=== PATIENT | female | born 1995 | race Caucasian/White ===

== ENCOUNTER 2018-05-05 11:45 | Outpatient (REF) | payer OTHER, SELFPAY | END 2018-05-05 12:05 | LOC: NCHCN 11:45 | PROVIDERS: PCP Specialist/Technologist Athletic Trainer; Visit Provider Specialist/Technologist Athletic Trainer | DX: J02.9 Acute pharyngitis, unspecified (principal) | CPT/HCPCS: 87070 ==

== ENCOUNTER 2020-04-30 15:57 | Outpatient (REF) | payer OTHER, SELFPAY ==
--- NOTE | 2020-04-30 14:45 | PAPFT_PTH ---
PATIENT: Juanita Ch LOC: [facility] U#:[id number] AGE/SX: 24/F ROOM: RE04/30/[address]: Nalini Morrison NP : 1995 BED: DIS: 04/30/2020 SPEC #: [id number] RECD: 04/30/20 18:00 STATUS: ILDA BATES #: [id number] ALBERTO: 04/30/20 14:[address]: Nalini Morrison NP DEPT: [facility] Cytology RECD BY: Keke Larios ENTERED: 04/30/20 18:01 SP TYPE: PAPFT OTHR DR: Levi Chan Tissues: 1 - CX/ENDOCX FOR PAP SMEARS Procedures: PAP THIN PREP/[facility]VM Screening Comments: [id number]
== END 2020-04-30 16:17 ==
LOC: LBN 15:57
PROVIDERS: PCP Specialist/Technologist Athletic Trainer; Visit Provider Nurse Practitioner Women's Health
DX: Z12.4 Encounter for screening for malignant neoplasm of cervix (principal); R87.611 Atypical squamous cells cannot exclude high grade squamous intraepithelial lesion on cytologic smear of cervix (ASC-H)
CPT/HCPCS: 88142

== ENCOUNTER 2020-05-28 16:40 | Outpatient (REF) | payer OTHER, SELFPAY ==
--- NOTE | 2020-05-28 14:15 | CER_PTH ---
PATIENT: Juanita Ch LOC: [facility] U#:[id number] AGE/SX: 24/F ROOM: RE05/28/[address]: Della Romero DO : 1995 BED: DIS: 05/28/2020 SPEC #: [id number] RECD: 05/28/20 16:53 STATUS: ILDA REQ #: [id number] ALBERTO: 05/28/20 14:[address]: Della Romero DEPT: Surgical Specimen RECD BY: Keke Larios ENTERED: 05/28/20 16:59 SP TYPE: CER DONTA DR: Renee Navas Tissues: 1 - CERVICAL BIOPSY 2 - ENDOCERVICAL BX/CURRETTE Procedures: GROSS AND MICRO LEVEL 4 Comments: [id number]
== END 2020-05-28 17:00 ==
LOC: LBN 16:40
PROVIDERS: PCP Specialist/Technologist Athletic Trainer; Visit Provider Obstetrics & Gynecology
DX: R87.610 Atypical squamous cells of undetermined significance on cytologic smear of cervix (ASC-US) (principal); N72 Inflammatory disease of cervix uteri
CPT/HCPCS: 88305

== ENCOUNTER 2021-09-09 12:09 | Outpatient (REF) | payer OTHER, SELFPAY ==
--- NOTE | 2021-09-09 11:30 | PAPFT_PTH ---
PATIENT: Juanita Ch LOC: [facility] U#:[id number] AGE/SX: 25/F ROOM: RE09/09/[address]: Della Romero DO : 1995 BED: DIS: 09/09/2021 SPEC #: [id number] RECD: 09/09/21 13:02 STATUS: ILDA RE #: [id number] ALBERTO: 09/09/21 11:[address]: Della Romero DEPT: [facility] Cytology RECD BY: Keke Larios ENTERED: 09/09/21 13:02 SP TYPE: PAPFT OTHR DR: Levi Chan Tissues: 1 - CX/ENDOCX FOR PAP SMEARS Procedures: PAP THIN PREP/UVM Screening Comments: [id number] (CHLAMYDIA/GC)
[2021-09-10 14:16] LABS: Chlamydia Result Negative (Negative); GC Result Negative (Negative)
== END 2021-09-09 12:10 | disposition home or self-care (01) ==
LOC: LBN 12:09
PROVIDERS: PCP Specialist/Technologist Athletic Trainer; Visit Provider Obstetrics & Gynecology
DX: Z11.3 Encounter for screening for infections with a predominantly sexual mode of transmission (principal); Z12.4 Encounter for screening for malignant neoplasm of cervix; R87.613 High grade squamous intraepithelial lesion on cytologic smear of cervix (HGSIL)
CPT/HCPCS: 87491; 87591; 88142

== ENCOUNTER 2021-12-01 15:35 | Outpatient (REF) | payer OTHER, BC, SELFPAY ==
--- NOTE | 2021-12-01 14:55 | ENDO_PTH ---
PATIENT: Juanita Ch LOC: [facility] U#:[id number] AGE/SX: 26/F ROOM: RE12/01/[address]: Della Romero DO : 1995 BED: DIS: 12/01/2021 SPEC #: [id number] RECD: 12/01/21 16:53 STATUS: ILDA REQ #: [id number] ALBERTO: 12/01/21 14:[address]: Della Romero DEPT: Surgical Specimen RECD BY: Keke Larios ENTERED: 12/01/21 16:54 SP TYPE: Endo OTHR DR: Levi Chan Tissues: 1 - ENDOCERVICAL BX/CURRETTE 2 - CERVICAL BIOPSY Procedures: GROSS AND MICRO LEVEL 4 Comments: [id number]
== END 2021-12-01 15:36 | disposition home or self-care (01) ==
LOC: LBN 15:35
PROVIDERS: PCP Specialist/Technologist Athletic Trainer; Visit Provider Obstetrics & Gynecology
DX: R87.613 High grade squamous intraepithelial lesion on cytologic smear of cervix (HGSIL) (principal)
CPT/HCPCS: 88305

== ENCOUNTER 2022-01-05 03:56 | Outpatient (CLI) | payer OTHER, BC, SELFPAY ==
[2022-01-05 14:55] LABS: Abs Immature Grans 0.03 10^3/uL (0.0-0.06); Absolute Basophil Count 0.04 10^3/uL (0.0-0.2); Absolute Lymphocyte Count 1.97 10^3/uL (1.2-3.4); Absolute Monocyte Count 0.56 10^3/uL (0.1-0.8); Absolute Neutrophil Count 8.06 10^3/uL (1.2-6.7); Basophils % 0.4; Eosinophils % 1.8; HCT 40.8 % (36.0-46.0); HGB 13.7 g/dL (11.2-15.7); Immature Grans % 0.3; Lymphocytes % 18.1; MCH 31.1 pg (27.0-33.0); MCHC 33.6 % (32.0-36.0); MCV 93 fL (80-95); MPV 11.1 fL (8.0-11.0); Monocytes % 5.2; Neutrophils % 74.2; Platelet Count 264 10^3/uL (130-400); RBC 4.41 10^6/uL (3.93-5.22); RDW 12.8 % (11.7-14.6); RDW-SD 43.3 fL; WBC 10.86 10^3/uL (4.4-10.8)
== END 2022-01-05 03:57 | disposition home or self-care (01) ==
LOC: LBO 03:57
PROVIDERS: PCP Nurse Practitioner Family; Visit Provider Obstetrics & Gynecology
DX: Z01.818 Encounter for other preprocedural examination (principal); Z20.822 Contact with and (suspected) exposure to COVID-19
CPT/HCPCS: 36415; 86850; 86900; 86901; 85025

== ENCOUNTER 2022-01-05 03:57 | Outpatient (CLI) | payer OTHER, BC, SELFPAY ==
[2022-01-05 17:22] LABS: Source Nasal/Nares
[2022-01-05 20:00] LABS: COVID-19 PCR Negative (Negative)
== END 2022-01-05 03:58 | disposition home or self-care (01) ==
LOC: LBO 03:57
PROVIDERS: PCP Nurse Practitioner Family; Visit Provider Obstetrics & Gynecology
DX: Z01.818 Encounter for other preprocedural examination (principal); Z20.822 Contact with and (suspected) exposure to COVID-19
CPT/HCPCS: 87635

== ENCOUNTER 2022-01-07 07:12 | Day surgery (SDC) | payer OTHER, BC, SELFPAY ==
[2022-01-07 07:15] VITALS: BP 126/84; PULSE 101; RESP 18; TEMP 36.5; O2SAT 96
[2022-01-07] MEDS: Lactated Ringers 1,000 ML 125 ML IV (07:44)
--- NOTE | 2022-01-07 08:26 | W.ANESPRE ---
General Info Date of Service Date Performed: 01/07/22 Height: 5 ft 1 in Weight: 83.4 kg Body Mass Index (BMI): 34.7 Surgical Procedure: Operation Date: 01/07/22 09:10 Proposed Procedure Side Surgeon p Leep Cone Biopsy Della Romero DO Meds Allergies and Home Medications Allergies Allergy/AdvReac Type Severity Reaction Status Date / Time cephalexin monohydrate Allergy Unknown Hives Unverified 01/07/22 06:19 [From Keflex] Home Medication Medication Instructions Recorded levonorgestrel 0.15 mg-ethinyl See Rx Instructions .Route 10/28/21 estradiol 0.03 mg tablet (Kurvelo .COMPLEX #84 tabs (28)) Current Visit Medications: Current Medications Generic Name Dose Route Start Last Admin Trade Name Freq PRN Reason Stop Dose Admin Ringer's Solution 1,000 mls @ 125 mls/hr 01/07/22 06:00 01/07/22 07:44 IV 01/07/22 23:59 125 mls/hr INFUSION ELISABET Administration IV Miscellaneous Supplies 1 each 01/07/22 06:00 Iv Access IV 01/07/22 23:59 DIRECTED ELISABET Sodium Chloride 0 ml 01/07/22 06:00 Normal Saline Flush 10 Ml Syr IV 01/07/22 23:59 PRN PRN Sodium Chloride 0 ml 01/07/22 06:00 Normal Saline 10 Ml Vial IJ 01/07/22 23:59 DIRECTED PRN Sterile Water 0 ml 01/07/22 06:00 Water,Injection,Sterile 10 Ml Vial IJ 01/07/22 23:59 DIRECTED PRN PFSH Active Problems Active Problems: Problem Status Onset Code 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 D06.9 Pap smear of cervix with ASCUS, cannot exclude HGSIL R87.611 Uses oral contraceptives Z30.41 Rash R21 Tobacco Smoking/Tobacco Use Status: Current every day Tobacco Type: cigarettes Smoking cigarettes per day: 10 Substance Use Substance use: Occasionally Substance use type: does not use and marijuana Prental History History 0 Para Hx # Term Pregnancies Multiple births Hx # Pregnancies Ectopic pregnancies AB induced Hx Number of Living Children AB spontaneous Vital Signs and Lab Results Vital Signs Most Recent Vital Signs in EMR: Most Recent Vital Signs Temp Pulse Resp BP Pulse Ox 36.5 C 101 H 18 126/84 96 01/07/22 07:15 01/07/22 07:15 01/07/22 07:15 01/07/22 07:15 01/07/22 07:15 Point of Care Results Point of Care Results: POC- Test(urine) Negative 01/07/22 07:43 Lab Results Blood Type / Crossmatch: Patient ABO/Rh O Positive 01/05/22 Antibody Screen NEGATIVE 01/05/22 Complete Blood Count: White Blood Count 10.86 10^3/uL (4.4-10.8) H 01/05/22 14:44 Red Blood Count 4.41 10^6/uL (3.93-5.22) 01/05/22 14:44 Hemoglobin 13.7 g/dL (11.2-15.7) 01/05/22 14:44 Hematocrit 40.8 % (36.0-46.0) 01/05/22 14:44 Platelet Count 264 10^3/uL (130-400) 01/05/22 14:44 Complete Metabolic Panel: No Data to Display Liver Function Panel: No Data to Display Coagulation Panel: No Data to Display Cardiac Panel: No Data to Display Arterial Blood Gas: No Data to Display Venous Blood Gas: No Data to Display Pancreas Panel: No Data to Display Thyroid Panel: No Data to Display Infectious Disease: Coronavirus (COVID-19)(PCR) Negative (Negative) 01/05/22 15:07 Coronavirus 2019 Source Nasal/Nares 01/05/22 15:07 Blood Cultures: No Data to Display Toxicology Panel: No Data to Display Panel: No Data to Display Anesthesia Assessment and Plan Anesthesia History Personal History: No History of General Anesthesia and Unknown Anesthesia History Family History: No Family History of Anesthesia Complications Exercise Tolerance Exercise Tolerance: Metabolic Equivalents>4 Pertinent Negatives Pertinent Negatives: No Symptoms of GERD, No Major Cardiovascular Symptoms or Complaints and No Major Pulmonary Symptoms or Complaints Cardiac & Pulmonary Exam Cardiac Exam: Normal S1/S2 Heart Sounds Pulmonary Exam: Clear Bilateral Breath Sounds Implantable Cardiac Device Does patient have a Pacemaker or an ICD?: No Airway Exam Known Difficult Airway: No Mallampati Class: 1 Mouth Opening: Normal (> 3cm) Thyromental Distance: Greater than 3 cm Neck Range of Motion: Full ROM Neck Circumference: Normal Teeth Condition: Normal Dentition ASA Classification ASA Score: ASA 2 Emergency Case?: No NPO Status NPO Status: NPO Clears >2 hours, Solids >8 hours Status Status: Negative HCG Anesthesia Plan Resuscitation Status: Full Code Anesthesia Technique: General Anesthesia Airway Planned: Natural Airway Monitors Used: Standard Monitors
[2022-01-07 08:28] VITALS: BMI 34.7
--- NOTE | 2022-01-07 09:49 | CER_PTH ---
PATIENT: Juanita Ch LOC: [facility] U#:[id number] AGE/SX: 26/F ROOM: RE01/07/[address]: Della Romero DO : 1995 BED: DIS: 01/07/2022 SPEC #: [id number] RECD: 01/07/22 12:45 STATUS: ILDA REQ #: [id number] ALBERTO: 01/07/22 09:[address]: Della Romero DEPT: Surgical Specimen RECD BY: Keke Larios ENTERED: 01/07/22 12:46 SP TYPE: CER OTHR DR: Renee Navas Tissues: 1 - CERVICAL CONE BX Procedures: GROSS AND MICRO LEVEL 5 Comments: [id number]
--- NOTE | 2022-01-07 10:02 | W.PM.OP ---
Date of service: 01/07/22 Time of Service: 10:02 Operative Note Operative Note DATE OF PROCEDURE: 01/07/22 PRE-OP DIAGNOSIS: Severe cervical dysplasia POST-OP DIAGNOSIS: same PROCEDURE: Loop electrocautery excisional procedure SURGEON: Della Romero ANESTHESIA TYPE: General:No Airway Refer to Anesthesia Record ESTIMATED BLOOD LOSS: 5 PATHOLOGY: other (Cervical conization specimen) COMPLICATIONS: None Patient was transported to: PACU Patient's condition: stable Implants: None Indications: Severe cervical dysplasia Findings: Visually normal-appearing cervix Procedure Description: After previous Pap smear abnormalities and colposcopic examination confirming severe cervical dysplasia, the risk benefits and alternatives of conization for false diagnosis and treatment were explained to the patient and full informed consent was obtained. She was taken the operating suite with an IV running where she was placed in the supine position and anesthesia administered. She was then placed in the modified dorsolithotomy position [facility] stirrups and prepped and draped in the usual sterile fashion. Exam under anesthesia revealed a uterus that was midline and mobile without evidence of adnexal masses. Speculum was inserted into the vaginal vault and the transformation zone identified. With cautery set at 60?60, blend 1 a cervical conization specimen was removed including the entire transformation zone. The base of the excisional procedure was cauterized and found to be hemostatic. Monsel's solution was placed over the incisional base. Patient was returned to the dorsal supine position and awoke from anesthesia with ease. Complications are none apparent. Blood loss is minimal, no more than 5 cc. Findings: Visually normally appearing cervix with transformation zone. Fluids: Crystalloid per anesthesia Pathology: Cervical conization specimen
[2022-01-07 10:13] VITALS: BP 109/68; PULSE 89; RESP 16; TEMP 36.2; O2SAT 97
[2022-01-07 10:34] VITALS: BP 103/75; PULSE 85; RESP 16; TEMP 36.2; O2SAT 99
--- NOTE | 2022-01-07 10:39 | W.ANESPOSTOP ---
Postoperative Evaluation Date, Time and Location Date Performed: 01/07/22 Time Performed: 10:25 Patient Location: Day Surgery Unit Vital Signs Most Recent Imported Vital Signs: Most Recent Vital Signs Temp Pulse Resp BP Pulse Ox 36.2 C L 89 16 109/68 97 01/07/22 10:13 01/07/22 10:13 01/07/22 10:13 01/07/22 10:13 01/07/22 10:13 Pain Score Most Recent Pain Score: Most Recent Pain Score Pain Level 0 01/07/22 10:13 Assessment Mental Status: Awake (Alert & Oriented to Patient Baseline) Airway and Respiratory Function: Patent airway with normal (patient baseline) respiratory exam Cardiovascular Function: Hemodynamically Stable Hydration Status: Adequately Hydrated Nausea & Vomiting: No Nausea or Vomiting Pain: Pain is tolerable per patient Peripheral Nerve Block: Patient did not receive a nerve block
== END 2022-01-07 11:05 | disposition home or self-care (01) ==
PROVIDERS: PCP Nurse Practitioner Family; Visit Provider Obstetrics & Gynecology
PROC: 0UBC7ZZ Excision of Cervix, Via Natural or Artificial Opening (ICD-10-PCS; CPT 57522; principal; 2022-01-07 09:00)
DX: D06.9 Carcinoma in situ of cervix, unspecified (principal); F17.210 Nicotine dependence, cigarettes, uncomplicated
CPT/HCPCS: 57522; 81025; 88307; J1100; J1885; J2250; J2405

== ENCOUNTER 2022-08-17 03:27 | Outpatient (CLI) | payer BC, SELFPAY ==
[2022-08-17 14:39] LABS: Panorama Kit Sent via Fed Ex
[2022-08-17 14:43] LABS: Abs Immature Grans 0.03 10^3/uL (0.0-0.06); Absolute Basophil Count 0.02 10^3/uL (0.0-0.2); Absolute Eosinophil Count 0.09 10^3/uL (0.0-0.7); Absolute Lymphocyte Count 1.45 10^3/uL (1.2-3.4); Absolute Monocyte Count 0.53 10^3/uL (0.1-0.8); Absolute Neutrophil Count 7.61 10^3/uL (1.2-6.7); Basophils % 0.2; Eosinophils % 0.9; HCT 36.1 % (36.0-46.0); HGB 12.6 g/dL (11.2-15.7); Immature Grans % 0.3; Lymphocytes % 14.9; MCH 30.7 pg (27.0-33.0); MCHC 34.9 % (32.0-36.0); MCV 88 fL (80-95); MPV 11.4 fL (8.0-11.0); Monocytes % 5.4; Neutrophils % 78.3; Platelet Count 237 10^3/uL (130-400); RBC 4.11 10^6/uL (3.93-5.22); RDW 12.6 % (11.7-14.6); WBC 9.73 10^3/uL (4.4-10.8)
[2022-08-17 15:13] LABS: Glucose,1 Hr (Glucola) 109 mg/dL (80-140)
[2022-08-18 09:35] LABS: Rubella IgG Ab (UVM) Positive (See Note); Varicella IgG Antibody Negative (See Note)
[2022-08-18 10:04] LABS: Hepatitis C Ab w Rflx HCV PCR Negative (Negative)
[2022-08-18 10:20] LABS: Hepatitis B Surface Ag Negative (Negative)
[2022-08-18 10:28] LABS: HIV-1/2 Ag & Ab Screen Negative (Negative)
[2022-08-19 16:07] LABS: Syphilis IgG w/Reflex Nonreactive (Nonreactive)
[2022-08-27 14:44] LABS: Result Summary NEGATIVE; Specimen WB Whole Blood
== END 2022-08-17 03:28 | disposition home or self-care (01) ==
LOC: LBO 03:28
PROVIDERS: PCP Nurse Practitioner Family; Visit Provider Advanced Practice Midwife
DX: Z34.91 Encounter for supervision of normal pregnancy, unspecified, first trimester (principal); Z36.89 Encounter for other specified antenatal screening; Z3A.11 11 weeks gestation of pregnancy
CPT/HCPCS: 36415; 81220; 81222; 82950; 86787; 86803; 86850; 86900; 86901; 87340; 87389; 85025; 86762; 86780

== ENCOUNTER 2022-08-17 13:39 | Outpatient (REF) | payer BC, SELFPAY ==
--- NOTE | 2022-08-17 13:40 | PAPFT_PTH ---
PATIENT: Juanita Ch LOC: [facility] U#:[id number] AGE/SX: 26/F ROOM: RE08/17/[address]: Cammy Altamirano CNM : 1995 BED: DIS: 08/17/2022 SPEC #: [id number] RECD: 08/17/22 18:19 STATUS: ILDA REQ #: [id number] ALBERTO: 08/17/22 13:[address]: Cammy Altamirano DEPT: [facility] Cytology RECD BY: Keke Larios ENTERED: 08/17/22 18:20 SP TYPE: PAPFT OTHR DR: Renee Navas Tissues: 1 - CX/ENDOCX FOR PAP SMEARS Procedures: PAP THIN PREP/UVM Screening HPV DNA PROBE Comments: [id number]
[2022-08-17 16:54] LABS: *AMPHETAMINES SCREEN URINE Negative (Negative); *BARBITURATES SCREEN URINE Negative (Negative); *BENZODIAZEPINES SCREEN URINE Negative (Negative); Cannabinoids THC Negative (Negative); Cocaine Screen,Urine Negative (Negative); METHADONE URINE SCREEN Negative (Negative); OPIATES URINE SCREEN Negative (Negative)
[2022-08-17 16:56] LABS: Tricyclic Antidepressants Negative (Negative)
[2022-08-18 13:41] LABS: Chlamydia Result Negative (Negative); GC Result Negative (Negative)
[2022-08-21 12:22] LABS: Buprenorphine Negative ng/mL (Cutoff: 5.0); Norbuprenorphine Negative ng/mL (Cutoff: 2.5)
== END 2022-08-17 13:40 | disposition home or self-care (01) ==
LOC: LBN 13:39
PROVIDERS: PCP Nurse Practitioner Family; Visit Provider Advanced Practice Midwife
DX: Z34.91 Encounter for supervision of normal pregnancy, unspecified, first trimester (principal); Z12.4 Encounter for screening for malignant neoplasm of cervix; Z11.3 Encounter for screening for infections with a predominantly sexual mode of transmission; Z3A.11 11 weeks gestation of pregnancy; Z11.51 Encounter for screening for human papillomavirus (HPV)
CPT/HCPCS: 80307; 80348; 87491; 87591; 88142; 87086; 87624

== ENCOUNTER 2022-12-18 02:00 | Outpatient (CLI) | payer BC, SELFPAY ==
[2022-12-18 10:11] LABS: HCT 34.2 % (36.0-46.0); HGB 11.4 g/dL (11.2-15.7); MCH 30.3 pg (27.0-33.0); MCHC 33.3 % (32.0-36.0); MCV 91 fL (80-95); MPV 12.1 fL (8.0-11.0); Platelet Count 195 10^3/uL (130-400); RBC 3.76 10^6/uL (3.93-5.22); RDW 13.5 % (11.7-14.6); RDW-SD 45.1 fL; WBC 8.65 10^3/uL (4.4-10.8)
[2022-12-18 10:20] LABS: Glucose,1 Hr (Glucola) 102 mg/dL (80-140)
== END 2022-12-18 02:01 | disposition home or self-care (01) ==
LOC: LBO 02:01
PROVIDERS: PCP Nurse Practitioner Family; Visit Provider Advanced Practice Midwife
DX: Z34.93 Encounter for supervision of normal pregnancy, unspecified, third trimester (principal); Z3A.29 29 weeks gestation of pregnancy
CPT/HCPCS: 36415; 82950; 85027

== ENCOUNTER 2023-02-05 09:48 | Outpatient (REF) | payer BC, SELFPAY ==
[2023-02-05 11:00] LABS: *AMPHETAMINES SCREEN URINE Negative (Negative); *BARBITURATES SCREEN URINE Negative (Negative); *BENZODIAZEPINES SCREEN URINE Negative (Negative); Cannabinoids THC Negative (Negative); Cocaine Screen,Urine Negative (Negative); METHADONE URINE SCREEN Negative (Negative); OPIATES URINE SCREEN Negative (Negative)
[2023-02-05 11:01] LABS: Tricyclic Antidepressants Negative (Negative)
[2023-02-11 14:12] LABS: Buprenorphine Negative ng/mL (Cutoff: 5.0)
== END 2023-02-05 09:49 | disposition home or self-care (01) ==
LOC: LBN 09:48
PROVIDERS: PCP Nurse Practitioner Family; Visit Provider Advanced Practice Midwife
DX: Z34.93 Encounter for supervision of normal pregnancy, unspecified, third trimester (principal); Z36.85 Encounter for antenatal screening for Streptococcus B; Z3A.36 36 weeks gestation of pregnancy
CPT/HCPCS: 80307; 80348; 87081

== ENCOUNTER 2023-03-06 13:29 | Inpatient (IN) | payer BC, SELFPAY ==
[2023-03-06] VITALS (75 sets, daily range): BP systolic 104–160; BP diastolic 56–114; PULSE 90–129; RESP 16–17; TEMP 36.3–37.2; O2SAT 95–100; BMI 34.7
--- NOTE | 2023-03-06 13:32 | W.PM.OBHPL1 ---
Date of service: 03/06/23 Time of Service: 13:32 Assessment and Plan Assessment and plan (1) Normal labor: Status: Acute Assessment and plan: 1. Will admit, ROM plus to confirm ROM, CBC and type and screen 2. Patient is aware that augmentation of labor can be performed if she desires, she is aware of risks and benefits of augmentation and expectant management. As labor started shortly after ROM and she is dottie regularly, she prefers expectant management and minimal intervention as long and she and baby are doing well. Will support expectant management. 3. Reassess in 4 hours or as indicated, will not do VE unless indicated due to ROM. KH OB-HPI Labor/Delivery History of Present Illness Reason for Visit: NST Chief Complaint: Uterine Contractions; Suspected Rupture of Membranes , Associated Signs and Symptoms of Suspected ROM: small amount of clear fluid expelled from vagina during cervical exam, ROM plus pending. MORALES Calculator Estimated Delivery Date Method Current WG Current Estimate 03/04/23 LMP (Certain) 40w 2d Other Estimates 03/07/23 Ultrasound #1 39w 6d Comments: Juanita had SROM with large gush of fluid at 0830 today and contractions began shortly after. She presented at 1300 with regular contractions and continued leaking of fluid. She is reporting back pain with her contractions. Denies vaginal bleeding. Baby is active. She is hoping for unmedicated and is wanting to try tub for discomfort. Her partner, Cecilio, is present and supportive. She is able to tolerate PO hydration and prefers to avoid IV access at this time. RODERICK History of Present Expected Delivery Route/Plan - CNM FOB/ - Cecilio Ch BG Varicella non-immune, offer vaccine Hopes for unmedicated , access to tub GBS negative Specific Issues/Plan 1. BMI 33 - early cdhdhxy=905, @ 28 rse=738 2. Recommended low dose ASA for nulliparity and BMI 3. cfDNA LR female, CF - neg, declines SMA & AFP 4. Sciatic pain, referral to [facility] (difficult due to work) 5. Hgb 10.2 - Iron recommended daily, taking every other day. Assessment: History Reviewed & Current Informed Consent Informed Consent: Augmentation of Labor (patient prefers to avoid augmentation and continue with expectant management, will support labor) and Risk,Benefits,Alternatives Discussed Review of Systems All systems reviewed & are unremarkable except as noted in HPI and below PFSH All Active Problems (Updated 03/06/23 @ 13:40 by Cammy Altamirano CNM) Normal labor (Acute) Maternal varicella, non-immune (Acute) Sciatic pain (Acute) History of abnormal cervical Pap smear (Acute) History of cervical LEEP biopsy affecting care of mother, antepartum (Acute) BMI 35.0-35.9,adult (Acute) (Acute) Medical History test positive 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 LEEP Dec 2021: TAMARA 3 with clear margins Family History Mother Cancer cervical Depression Substance use disorder Alcohol use disorder Paternal Grandmother Cancer thyroid, lung, eye and intestinal cancer Colon cancer Social History Smoking/Tobacco Use Status: Former Tobacco Use Smoking risk assessment performed?: Yes Alcohol Intake: never Counseling given: No Drug use: Never Substance use type: does not use Adopted: No Caregiver/Support person: No Foster care: No Household members: spouse Housing: house Communication Needs: None Education Level: college Do you need help understanding health information?: Never Pets and animals: Yes Pets and animals: dog(s) Sexually active: Yes Do you think of yourself as: straight/heterosexual Current gender identity: male What is your relationship status?: How often do you talk on the phone with friends or family?: three or more times per week How often do you get together with friends or relatives?: three or more times per week How often do you attend baptist or restoration services?: 1-3 times per year Panel score (0-1 are the most socially isolated patients): 2 What type of physical activity do you participate in: walking Duration: < 15 minutes/day Special david needs: No Agree to transfusion: Yes Seatbelt use: always Helmet use: Yes Drive intox or ride w/intox transit driver: No Do you feel safe at home: Yes Do you feel safe in your relationship?: Yes Female Reproductive History Menstrual control method: pills History History 1 Para 0 Hx # Term Pregnancies 0 Multiple births 0 Hx # Pregnancies 0 Ectopic pregnancies 0 AB induced 0 Hx Number of Living Children 0 AB spontaneous 0 Meds Allergies and Home Medications Allergies Allergy/AdvReac Type Severity Reaction Status Date / Time cephalexin monohydrate Allergy Unknown Hives Unverified 03/06/23 13:38 [From [employer]] Home Medications Medication Instructions Recorded Confirmed Type prenat.vits,dieter,eko-vwjy-zzbbg 1 tab PO DAILY 07/28/22 03/05/23 History ferrous sulfate 325 mg (65 mg 325 mg PO DAILY #90 tabs 02/05/23 03/05/23 Rx iron) tablet aspirin 81 mg tablet,delayed 81 mg PO DAILY #90 tabs 02/19/23 03/05/23 Rx release (Amilcar Low Dose Aspirin) Exam Physical Exam Vital signs: Pulse BP 93 H 111/76 03/06/23 13:28 03/06/23 13:28 Vital Signs Reviewed: Yes Narrative: T 37.1 Constitutional Constitutional: mild distress (working well with contractions but is uncomfortable) and average body habitus (has had a total of 6lb weight loss during , no gain.) Detailed Labor and Delivery Exam Dilation: 2 Effacement (%): 90 station: -1 Position: LOP Cervix position: mid Consistency: soft Doty Score: Cervical Points Exam 0 1 2 3 Dilation Closed 1-2cm 3-4 cm 5-6cm Effacement 0-30% 40-50% 60-70% 80% Consistency Firm Medium Soft Station -3 -2 -1,0 +1,+2 Position Posterior Mid Anterior DOTY Score(Cervical Ripeness Score): 9 Amniotic Membrane Status: Ruptured Rupture Method: Spontaneous Contraction Frequency(min): 3-5 Contraction Duration(sec): 50-80 Contraction Intensity: Mild/Moderate Fetus A Heart Rate Baseline: 140 Monitor Accelerations: 15 X 15 Monitor Decelerations: None Variability: Moderate (6-25 BPM) Categories: Category I Date of Membrane Rupture: 03/06/23 Time of Membrane Rupture: 08:30 HEENT Exam HEENT Exam: Normal (reports minimal nasal congestion, did COVID test this week that was negative) Neck Exam Neck Exam: Normal (visual exam) Chest/Brest/Axilla Exam Chest Exam: Normal Breast Exam Breast Exam: Not Done Respiratory Exam Respiratory Exam: Normal Cardiovascular Exam Cardiovascular Exam: Normal Abdominal Exam Abdominal Exam: Normal Rectal Exam Rectal Exam: Not Done Exam Exam: Normal (small amount of clear fluid expelled from vagina during digital cervical exam) Extremities Exam Extremities Exam: Normal Back/Spine/Pelvis Exam Back Exam: Normal Pelvis Adequate: Yes Skin Exam Skin Exam: Normal Neurological Exam Neurological Exam: Normal Psychiatric Exam Psychiatric Exam: Normal Results Results Group Beta Strep: Negative Blood Type: O+ Rubella Status: Immune Varicella Immunity: Nonimmune Lab Results: early 1 hour Glucose 104, GC CT neg, HIV neg, Hep B&C neg, Syphilis neg, cfDNA low risk female gender, CF neg, 28 week glucose 102, mild anemia with hgb 10.2 has supplemented with iron. Risk Assessment Risk for Shoulder Dystocia Historical/Initial OB: POSITIVE FOR: Pre- BMI>30; NEGATIVE FOR: Pelvic Abnormality, Previous Shoulder Dystocia or Previous Macrosomia 36 Weeks: NEGATIVE FOR: Current Gestational DM, EFW>4500gms or Maternal Weight Gain>40lbs 40 Weeks: NEGATIVE FOR: EFW> 4500 gms, Maternal Weight Gain >40lb or Post Dates Delivery Plan @ 36wks: [facility] Delivery Plan @ 40 wks: [facility] Risk for Pre-Eclampsia Yes, if one or more: NEGATIVE FOR: Hx Pre-E/Gest HTN, Chronic HTN, Multiple Gestation, Pre-gestational DM, Renal Disease, Systemic Lupus or APA Syndrome Yes, if 2 or more: POSITIVE FOR: Nulliparity and BMI>30 Risk for Post- Hemorrhage Initial: NEGATIVE FOR: Multiple Gestation, Previous PPH, Known Clotting Deficiency, Grand Multiparity or Anticoagulation 36 Weeks: NEGATIVE FOR: Anemia, hgb<10, Low platelets(thrombocytopenia), Gestational HTN or Pre-E, Polyhydraminios or EFW>4500gms 40 Weeks: NEGATIVE FOR: Anemia, hgb<10, Low platelets (thrombocytopenia), Gestation HTN or Pre-E, Polyhydraminios or EFW>4500gms Counseled re: Active Management: Yes Risks Reviewed Risks Reviewed Upon Admission: Yes (low risk for pre-eclampsia, no increased risk for shoulder dys or PPH)
[2023-03-06 14:00] LABS: ROM Plus Positive
[2023-03-06 14:01] LABS: Source Nasal/Nares
[2023-03-06 14:03] LABS: HCT 36.2 % (36.0-46.0); HGB 12.2 g/dL (11.2-15.7); MCH 29.8 pg (27.0-33.0); MCHC 33.7 % (32.0-36.0); MCV 89 fL (80-95); MPV 12.5 fL (8.0-11.0); Platelet Count 196 10^3/uL (130-400); RBC 4.09 10^6/uL (3.93-5.22); RDW 14.1 % (11.7-14.6); RDW-SD 45.5 fL
[2023-03-06 14:34] LABS: COVID-19 PCR Negative (Negative)
--- NOTE | 2023-03-06 16:36 | W.PM.OBNL1 ---
Date of service: 03/06/23 Time of Service: 16:36 Informed Consent Informed Consent: Augmentation of Labor (patient prefers to avoid augmentation and continue with expectant management, will support labor) and Risk,Benefits,Alternatives Discussed Pelvic Exam Comments: deferred Contractions Monitor Mode: Palpation Contraction Frequency(min): 2-3 Contraction Duration(sec): 60 Intensity: Moderate/Strong Fetus A Monitor: Doppler Heart Rate Baseline: 150 Assessment and Plan Assessment and plan (1) Normal labor: Status: Acute Assessment and plan: 1. continue present management, expect NVD. 2. Will consider VE in 4 hours if no signs of transitional labor. KH Objective Abnormal lab results 03/06/23 Range/Units 13:55 MPV 12.5 H (8.0-11.0) fL Temp Pulse Resp BP 98.4 F 103 H 16 109/60 03/06/23 15:26 03/06/23 15:53 03/06/23 13:41 03/06/23 15:53 Laboratory Results WBC 10.40 10^3/uL (4.4-10.8) 03/06/23 13:55 RBC 4.09 10^6/uL (3.93-5.22) 03/06/23 13:55 Hgb 12.2 g/dL (11.2-15.7) 03/06/23 13:55 Hct 36.2 % (36.0-46.0) 03/06/23 13:55 MCV 89 fL (80-95) 03/06/23 13:55 MCH 29.8 pg (27.0-33.0) 03/06/23 13:55 MCHC 33.7 % (32.0-36.0) 03/06/23 13:55 RDW 14.1 % (11.7-14.6) 03/06/23 13:55 Plt Count 196 10^3/uL (130-400) 03/06/23 13:55 MPV 12.5 fL (8.0-11.0) H 03/06/23 13:55 Membranes Rupture Positive 03/06/23 13:30 COVID-19 Source Nasal/Nares 03/06/23 13:55 SARS-CoV-2 (PCR) Negative (Negative) 03/06/23 13:55 Patient ABO/Rh O Positive 03/06/23 13:55 Antibody Screen NEGATIVE 03/06/23 13:55 Subjective Interval history since last seen: Juanita is using multiple positions to help her work through contractions that are every 2-3 minutes. Denies bloody show but reports some nausea and occasional shaking. KH Results Hemoglobin/Hematocrit: Hgb 12.2 g/dL (11.2-15.7) 03/06/23 13:55 Hct 36.2 % (36.0-46.0) 03/06/23 13:55 Abnormal Lab Findings: Abnormal Labs 03/06/23 13:55 MPV 12.5 H
--- NOTE | 2023-03-06 17:52 | W.PM.OBNL1 ---
Date of service: 03/06/23 Time of Service: 17:52 Informed Consent Informed Consent: Augmentation of Labor (patient prefers to avoid augmentation and continue with expectant management, will support labor), Risk,Benefits,Alternatives Discussed and Other (Nitrous use ) Pelvic Exam Dilation: 4.5 Effacement (%): 100 station: -1 Cervix Position: mid Consistency: soft BISHOPS Score(Cervical Ripeness Score): 9 Contractions Monitor Mode: Palpation Contraction Frequency(min): 3-4 Contraction Duration(sec): 60 Intensity: Moderate/Strong Fetus A Monitor: Doppler Heart Rate Baseline: 155 Assessment and Plan Assessment and plan (1) Normal labor: Status: Acute Assessment and plan: 1. Juanita is dottie well but is becoming fatigued, we discussed pain management options and at this time she would like to use Nitrous to help. I reviewed its proper use and she demonstrates proper use as well as adequate time with Nitrous away from her face between contractions 2. Will reassess in 2 hours or prn. May need to consider augmentation if contractions do not become strong consistently. KH Objective Abnormal lab results 03/06/23 Range/Units 13:55 MPV 12.5 H (8.0-11.0) fL Temp Pulse Resp BP 97.3 F L 94 H 16 111/59 L 03/06/23 17:47 03/06/23 17:45 03/06/23 13:41 03/06/23 17:45 Laboratory Results WBC 10.40 10^3/uL (4.4-10.8) 03/06/23 13:55 RBC 4.09 10^6/uL (3.93-5.22) 03/06/23 13:55 Hgb 12.2 g/dL (11.2-15.7) 03/06/23 13:55 Hct 36.2 % (36.0-46.0) 03/06/23 13:55 MCV 89 fL (80-95) 03/06/23 13:55 MCH 29.8 pg (27.0-33.0) 03/06/23 13:55 MCHC 33.7 % (32.0-36.0) 03/06/23 13:55 RDW 14.1 % (11.7-14.6) 03/06/23 13:55 Plt Count 196 10^3/uL (130-400) 03/06/23 13:55 MPV 12.5 fL (8.0-11.0) H 03/06/23 13:55 Membranes Rupture Positive 03/06/23 13:30 COVID-19 Source Nasal/Nares 03/06/23 13:55 SARS-CoV-2 (PCR) Negative (Negative) 03/06/23 13:55 Patient ABO/Rh O Positive 03/06/23 13:55 Antibody Screen NEGATIVE 03/06/23 13:55 Subjective Interval history since last seen: Juanita requesting additional pain management options. We discussed epidural, nitrous and continued position changes. She wants to try nitrous at this time and reassess. She also requested VE. KH Results Hemoglobin/Hematocrit: Hgb 12.2 g/dL (11.2-15.7) 03/06/23 13:55 Hct 36.2 % (36.0-46.0) 03/06/23 13:55 Abnormal Lab Findings: Abnormal Labs 03/06/23 13:55 MPV 12.5 H
--- NOTE | 2023-03-06 17:58 | W.OBNST ---
Date of service: 03/06/23 Time of Service: 14:00 NST Evaluation Reason for NST Reasons for Nonstress Test: OTHER, SEE COMMENT Reason for NST Other: Rule out labor Gestational Age Gestational Age in Weeks and Days: 40 Weeks and 2Days Test and Monitor Explained Test/Monitor Explained: Test Explained Vital Signs Blood Pressure: 111/76 Pulse: 93 Temperature: 98.8 F NST Information Date on Monitor: 03/06/23 Time on Monitor: 13:15 Date off Monitor: 03/06/23 Time off Monitor: 14:32 Total Time on Monitor: 77 NST Interventions: PO Hydration NST Evaluation Patient States Movement: Present FHR Baseline: 145 Variability: Moderate 6-25 bpm Accelerations: 10x10 Decelerations: None NST Results: Reactive Note Ultrasound Done: N/A. NST Note Note: admitted for ROM and early labor. NST is reactive and reassuring. RODERICK NST Reviewed and Verified by: Cammy Altamirano
--- NOTE | 2023-03-06 18:46 | PGE_ITS ---
Date of service: 03/06/23 Time of Service: 18:46 Informed Consent Informed Consent: Augmentation of Labor (patient prefers to avoid augmentation and continue with expectant management, will support labor), Risk,Benefits,Alternatives Discussed and Other (Nitrous use ) Assessment and Plan Assessment and plan (1) Normal labor: Status: Acute Assessment and plan: 1. Nitrous is no longer helping Juanita with her pain. Will arrange for epidural per her request. KH Objective Abnormal lab results 03/06/23 Range/Units 13:55 MPV 12.5 H (8.0-11.0) fL Temp Pulse Resp BP 97.3 F L 94 H 16 111/59 L 03/06/23 17:47 03/06/23 17:45 03/06/23 13:41 03/06/23 17:45 Laboratory Results WBC 10.40 10^3/uL (4.4-10.8) 03/06/23 13:55 RBC 4.09 10^6/uL (3.93-5.22) 03/06/23 13:55 Hgb 12.2 g/dL (11.2-15.7) 03/06/23 13:55 Hct 36.2 % (36.0-46.0) 03/06/23 13:55 MCV 89 fL (80-95) 03/06/23 13:55 MCH 29.8 pg (27.0-33.0) 03/06/23 13:55 MCHC 33.7 % (32.0-36.0) 03/06/23 13:55 RDW 14.1 % (11.7-14.6) 03/06/23 13:55 Plt Count 196 10^3/uL (130-400) 03/06/23 13:55 MPV 12.5 fL (8.0-11.0) H 03/06/23 13:55 Membranes Rupture Positive 03/06/23 13:30 COVID-19 Source Nasal/Nares 03/06/23 13:55 SARS-CoV-2 (PCR) Negative (Negative) 03/06/23 13:55 Patient ABO/Rh O Positive 03/06/23 13:55 Antibody Screen NEGATIVE 03/06/23 13:55 Subjective Interval history since last seen: Requesting epidural. Nursing miller supervisor notifying FACILITIES AND GROUNDS DIRECTOR, nursing will start IV. Patient denies questions. KH Results Hemoglobin/Hematocrit: Hgb 12.2 g/dL (11.2-15.7) 03/06/23 13:55 Hct 36.2 % (36.0-46.0) 03/06/23 13:55 Abnormal Lab Findings: Abnormal Labs 03/06/23 13:55 MPV 12.5 H
[2023-03-06] MEDS: Lactated Ringers 1,000 ML 125 ML IV (20:00)
--- NOTE | 2023-03-06 20:29 | ANES.PREOP_ITS ---
General Info Date of Service Date Performed: 03/06/23 Height: 5 ft 1 in Weight: 83.461 kg Body Mass Index (BMI): 34.7 Meds Allergies and Home Medications Allergies Allergy/AdvReac Type Severity Reaction Status Date / Time cephalexin monohydrate Allergy Unknown Hives Unverified 03/06/23 13:38 [From Cylex] Home Medication Medication Instructions Recorded prenat.vits,dieter,bjj-vyaz-idjjt 1 tab PO DAILY 07/28/22 ferrous sulfate 325 mg (65 mg 325 mg PO DAILY #90 tabs 02/05/23 iron) tablet aspirin 81 mg tablet,delayed 81 mg PO DAILY #90 tabs 02/19/23 release (Amilcar Low Dose Aspirin) Current Visit Medications: Current Medications Generic Name Dose Route Start Last Admin Trade Name Freq PRN Reason Stop Dose Admin Fentanyl/Ropivacaine 200 ml 03/06/23 19:15 Fentanyl/Ropivacaine 2 Mcg/Ml And 0.1% 200 Ml Cadd Cassette EP DIRECTED ELISABET Ringer's Solution 1,000 mls @ 125 mls/hr 03/06/23 19:00 IV INFUSION ELISABET IV Miscellaneous Supplies 1 each 03/06/23 13:29 Iv Access IV DIRECTED PRN maternal indications Sodium Chloride 0 ml 03/06/23 13:29 Normal Saline Flush 10 Ml Syr IVP PRN PRN PFSH Active Problems Active Problems: Problem Status Onset Code Normal labor O80, Z37.9 Maternal varicella, non-immune O09.899, Z28.39 Sciatic pain M54.30 History of abnormal cervical Pap smear Z87.42 History of cervical LEEP biopsy affecting care of mother, antepartum O34.40, Z98.890 BMI 35.0-35.9,adult Z68.35 Z34.90 Medical History Medical History test positive 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 LEEP Dec 2021: TAMARA 3 with clear margins Tobacco Smoking/Tobacco Use Status: Former Tobacco Use Alcohol Alcohol Intake: never Substance Use Substance use: Never Substance use type: does not use Prental History History 2 1 Para 0 Hx # Term Pregnancies 0 Multiple births 0 Hx # Pregnancies 0 Ectopic pregnancies 0 AB induced 0 Hx Number of Living Children 0 AB spontaneous 0 Vital Signs and Lab Results Vital Signs Most Recent Vital Signs in EMR: Most Recent Vital Signs Temp Pulse Resp BP Pulse Ox 36.3 C L 103 H 16 111/70 99 03/06/23 17:47 03/06/23 20:25 03/06/23 13:41 03/06/23 20:25 03/06/23 20:24 Lab Results 03/06/23 13:55 Blood Type / Crossmatch: 2 Patient ABO/Rh O Positive 03/06/23 Antibody Screen NEGATIVE 03/06/23 Complete Blood Count: 2 White Blood Count 10.40 10^3/uL (4.4-10.8) 03/06/23 13:55 Red Blood Count 4.09 10^6/uL (3.93-5.22) 03/06/23 13:55 Hemoglobin 12.2 g/dL (11.2-15.7) 03/06/23 13:55 Hematocrit 36.2 % (36.0-46.0) 03/06/23 13:55 Platelet Count 196 10^3/uL (130-400) 03/06/23 13:55 Complete Metabolic Panel: 2 No Data to Display Liver Function Panel: 2 No Data to Display Coagulation Panel: 2 No Data to Display Cardiac Panel: 2 No Data to Display Arterial Blood Gas: 2 No Data to Display Venous Blood Gas: 2 No Data to Display Pancreas Panel: 2 No Data to Display Thyroid Panel: 2 No Data to Display Infectious Disease: 2 Coronavirus (COVID-19)(PCR) Negative (Negative) 03/06/23 13:55 Coronavirus 2019 Source Nasal/Nares 03/06/23 13:55 Blood Cultures: 2 No Data to Display Toxicology Panel: 2 Urine Amphetamines Screen Negative (Negative) 02/05/23 09:00 Urine Benzodiazepines Screen Negative (Negative) 02/05/23 09:0 0 Urine Barbiturates Screen Negative (Negative) 02/05/23 09:00 Urine Cocaine Screen Negative (Negative) 02/05/23 09:00 Urine Methadone Screen Negative (Negative) 02/05/23 09:00 Urine Opiates Screen Negative (Negative) 02/05/23 09:00 Ur Tricyclic Antidepressants Screen Negative (Negative) 09:00 Ur Tetrahydrocannabinol (THC) Scrn Negative (Negative) 3 09:00 Panel: 2 No Data to Display Anesthesia Assessment and Plan Anesthesia History Personal History: No History of General Anesthesia and Unknown Anesthesia History Family History: No Family History of Anesthesia Complications Exercise Tolerance Exercise Tolerance: Metabolic Equivalents>4 Pertinent Negatives Pertinent Negatives: No Symptoms of GERD Cardiac & Pulmonary Exam Cardiac Exam: Normal S1/S2 Heart Sounds Pulmonary Exam: Clear Bilateral Breath Sounds Implantable Cardiac Device Does patient have a Pacemaker or an ICD?: No Airway Exam Known Difficult Airway: No Mallampati Class: 2 Mouth Opening: Normal (> 3cm) Thyromental Distance: Greater than 3 cm Neck Range of Motion: Full ROM Neck Circumference: Normal Teeth Condition: Normal Dentition ASA Classification ASA Score: ASA 2 Emergency Case?: No NPO Status NPO Status: NPO Clear Liquids>2 hours Status Status: Confirmed (Full Term) Anesthesia Plan Resuscitation Status: Full Code Anesthesia Technique: Epidural Anesthesia (Labor Epidural) Airway Planned: Natural Airway Monitors Used: Standard Monitors
--- NOTE | 2023-03-06 20:30 | W.ANESNEU ---
Epidural/Spinal Catheter Date Performed: 03/06/23 Procedure Start: 19:45 Procedure Stop: 20:15 Requesting Provider: Della Romero Procedure Location: Obstetrics Reason Performed: Labor Epidural Standard Monitors Applied: ECG, SpO2 and See EMR for corresponding vital signs Patient Position: Sitting Sedation Given (Indicate Dose Given): No Sedation given Patient Mental Status: Awake Sterility: Hand Hygiene, Surgical Cap, Surgical Mask, Sterile Gloves, Sterile Drape/Sheet, Eye Protection and Chlorhexidine Procedure Location: L3-L4 Interspace Epidural Needle: Tuohy 18 Gauge Needle Length: 3.5 Inch Needle Approach: Midline Epidural Procedure: Skin Prepped, Sterile Drape Placed, 1% Lidocaine to skin and subcutaneous tissue with 25G needle, Tuohy Needle placed, ABRIL to Saline Used, Epidural Catheter Placed, Negative Heme, Negative CSF Flow and Tuohy Needle Removed Catheter Placed?: Catheter Placed Test Dose (Indicate Dose Given): 3ml 1.5% Lidocaine with 1:200K Epinephrine Given and Negative Test Dose Loss of Resistance Depth (cm): 7 Catheter depth at skin (cm): 12 Dressing: Sorbaview Dressing Placed, Tegaderm Applied and Dressing reinforced with Tape Epidural Provider Bolus (Indicate Dose Given): Total Ropivacaine 0.1% with Fentanyl 2mcg/ml Given from pump. (ml) Dose:: 7.5cc Additives (Indicate Dose Given ): None Infusion Medication: Medication Infusion Began Medication Infusion: Ropivacaine 0.1% with Fentanyl 2mcg/ml (10cc/hour) Maintenance Infusion Rate (ml/hour): 10 PCEA Bolus Dose (ml): 5 Block Level: T7 Paresthesia: None Ultrasound: Used to minnie site Number of Attempts (See previous attempts in note section): 1 Procedure Tolerated: No Complications and Patient tolerated well Procedure Outcome: Successful Performed By: Asim Lindsey
--- NOTE | 2023-03-06 20:31 | W.PM.OBNL1 ---
Date of service: 03/06/23 Time of Service: 20:31 Informed Consent Informed Consent: Augmentation of Labor (patient prefers to avoid augmentation and continue with expectant management, will support labor), Risk,Benefits,Alternatives Discussed and Other (Nitrous use ) Pelvic Exam Comments: will do VE once gaspernet is comfortably resting. I have reviewed with her that if contractions space out or become less effective that pitocin augmentation would be recommended and she agrees to that plan if needed. She attempted to void immediately prior to epidural without success. Will assess bladder and consider esparza if needed. KH Contractions Monitor Mode: External Contraction Frequency(min): 2-4 Contraction Duration(sec): 40-80 Intensity: Moderate Fetus A Monitor: External (US) Heart Rate Baseline: 150 Variability: Minimal (1-5 BPM) (at this time, had been moderate at 2019) Accelerations: Absent Decelerations: None Assessment and Plan Assessment and plan (1) Normal labor: Status: Acute Assessment and plan: 1. Epidural is in place and beginning to help patient to be fairly comfortable 2. Plan to do VE in next 20-30 minutes and discuss augmentation if needed. Objective Abnormal lab results 03/06/23 Range/Units 13:55 MPV 12.5 H (8.0-11.0) fL Temp Pulse Resp BP Pulse Ox 97.3 F L 105 H 16 111/70 100 03/06/23 17:47 03/06/23 20:29 03/06/23 13:41 03/06/23 20:25 03/06/23 20:29 Laboratory Results WBC 10.40 10^3/uL (4.4-10.8) 03/06/23 13:55 RBC 4.09 10^6/uL (3.93-5.22) 03/06/23 13:55 Hgb 12.2 g/dL (11.2-15.7) 03/06/23 13:55 Hct 36.2 % (36.0-46.0) 03/06/23 13:55 MCV 89 fL (80-95) 03/06/23 13:55 MCH 29.8 pg (27.0-33.0) 03/06/23 13:55 MCHC 33.7 % (32.0-36.0) 03/06/23 13:55 RDW 14.1 % (11.7-14.6) 03/06/23 13:55 Plt Count 196 10^3/uL (130-400) 03/06/23 13:55 MPV 12.5 fL (8.0-11.0) H 03/06/23 13:55 Membranes Rupture Positive 03/06/23 13:30 COVID-19 Source Nasal/Nares 03/06/23 13:55 SARS-CoV-2 (PCR) Negative (Negative) 03/06/23 13:55 Patient ABO/Rh O Positive 03/06/23 13:55 Antibody Screen NEGATIVE 03/06/23 13:55 Subjective Interval history since last seen: Juanita has been repositioned to semi fowlers with a tilt to her left status post epidural placement and bolus. She is beginning to relax and tolerate contractions well. Results Hemoglobin/Hematocrit: Hgb 12.2 g/dL (11.2-15.7) 03/06/23 13:55 Hct 36.2 % (36.0-46.0) 03/06/23 13:55 Abnormal Lab Findings: Abnormal Labs 03/06/23 13:55 MPV 12.5 H
[2023-03-07] VITALS (23 sets, daily range): BP systolic 90–110; BP diastolic 57–81; PULSE 76–98; RESP 16–26; TEMP 36.3–36.9; O2SAT 95–100
--- NOTE | 2023-03-07 02:13 | OBCE_ITS ---
Date of service: 03/07/23 Time of Service: 02:13 Assessment and Plan Assessment and plan (1) Arrested labor: Status: Acute Assessment and plan: Pulmonary notified, anesthesia notified, pediatrics present. Arrest of descent. Failed vacuum attempt. We will proceed to the OR for section. Reassuring status currently. Anticipate spinal anesthesia. History of Present Illness History of Present Illness Chief Complaint: arrest of descent Narrative: Kindly asked to assist in delivery with this 27-year-old who has had spontaneous rupture of membranes for 18 hours. She progressed through the course of labor to the point that she was completely dilated. Request was made due to maternal exhaustion in the second stage. Bladder was drained for 200 cc of clear yellow urine. Exam revealed vertex at a +3 station in the occiput anterior position. Kiwi vacuum extractor placed and with maternal effort and 2 pushes with no pop offs, there was no descent of the vertex. Vacuum extractor was removed and patient allowed to continue to push with little descent of the vertex. In light of this, risks benefits and alternatives were discussed with the patient and full informed consent was obtained for section. Pediatrics was present for the vacuum extraction attempt. Or crew notified for pending section. heart rate tracing continued to have heart rate in the 150s with moderate variability. 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 LEEP Dec 2021: TAMARA 3 with clear margins Family History Mother Cancer cervical Depression Substance use disorder Alcohol use disorder Paternal Grandmother Cancer thyroid, lung, eye and intestinal cancer Colon cancer Social History Smoking/Tobacco Use Status: Former Tobacco Use Smoking risk assessment performed?: Yes Alcohol Intake: never Counseling given: No Drug use: Never Substance use type: does not use Adopted: No Caregiver/Support person: No Foster care: No Household members: spouse Housing: house Communication Needs: None Education Level: college Do you need help understanding health information?: Never Pets and animals: Yes Pets and animals: dog(s) Sexually active: Yes Do you think of yourself as: straight/heterosexual Current gender identity: male What is your relationship status?: How often do you talk on the phone with friends or family?: three or more times per week How often do you get together with friends or relatives?: three or more times per week How often do you attend scientology or alevism services?: 1-3 times per year Panel score (0-1 are the most socially isolated patients): 2 What type of physical activity do you participate in: walking Duration: < 15 minutes/day Special david needs: No Agree to transfusion: Yes Seatbelt use: always Helmet use: Yes Drive intox or ride w/intox concrete pile driver operator: No Do you feel safe at home: Yes Do you feel safe in your relationship?: Yes Female Reproductive History Menstrual control method: pills History History 2 1 Para 0 Hx # Term Pregnancies 0 Multiple births 0 Hx # Pregnancies 0 Ectopic pregnancies 0 AB induced 0 Hx Number of Living Children 0 AB spontaneous 0 Exam Const General: cooperative and other (Exhausted) HENMT Head: normal to inspection Eyes General: appearance normal, both eyes and all related structures Resp Effort & Inspection: normal respiratory effort and no cough Cardio Rate: regular rate Rhythm: regular rhythm Other: Arrest of descent after maternal effort with pushing for approximately 2-1/2 hours. No descent, no descent with attempted vacuum extraction. Extrem General: normal to inspection and no clubbing, cyanosis or edema Results Last Vital Signs Temp 99.0 F 03/06/23 22:27 Pulse 107 H 03/06/23 23:22 Resp 16 03/06/23 23:25 BP 111/76 03/06/23 23:22 Pulse Ox 95 03/06/23 21:59 Labs 03/06/23 13:55 Labs: Laboratory Results - last 24 hr 03/06/23 03/06/23 13:30 13:55 WBC 10.40 RBC 4.09 Hgb 12.2 Hct 36.2 MCV 89 MCH 29.8 MCHC 33.7 RDW 14.1 Plt Count 196 MPV 12.5 H Membranes Rupture Positive COVID-19 Source Nasal/Nares SARS-CoV-2 (PCR) Negative Patient ABO/Rh O Positive Antibody Screen NEGATIVE
[2023-03-07] MEDS: CLINDAMYCIN 900 MG/50 ML BAG 50 MG IVPB (02:24)
[2023-03-07] MEDS: AZITHROMYCIN 500 MG in Normal Saline 250 ML 250 MG IVPB (02:25)
[2023-03-07] MEDS: Methylergonovine 0.2 MG/ML VIAL (03:38)
[2023-03-07] MEDS: Tranexamic Acid 1,000 MG/10 ML VIAL 1000 MG (03:40)
[2023-03-07] MEDS: Lactated Ringers 1,000 ML 125 ML IV (03:46)
[2023-03-07] MEDS: Bupivacaine 0.25% Pres-Free 30 ML VIAL (04:09)
--- NOTE | 2023-03-07 04:20 | W.PM.OBNL1 ---
Date of service: 03/07/23 Time of Service: 01:25 Informed Consent Informed Consent: Augmentation of Labor (patient prefers to avoid augmentation and continue with expectant management, will support labor), Risk,Benefits,Alternatives Discussed and Other (Nitrous use ) Pelvic Exam Dilation: 10 Effacement (%): 100 station: 0 Comments: patient had urge to push, anterior lip was reduced. attempted to empty patients bladder with straight cath but unable to pass into bladder without pain. Contractions Monitor Mode: External Contraction Frequency(min): 2-4 Contraction Duration(sec): 60-90 Intensity: Moderate/Strong Fetus A Monitor: External (US) Heart Rate Baseline: 155 Variability: Moderate (6-25 BPM) Assessment Note: there are periods of broken tracing due to maternal movement with pushing effort. Assessment and Plan Assessment and plan (1) Arrested labor: Status: Acute Assessment and plan: 1. Due to some increase in FHR baseline and patient fatigue after almost 2 hours of pushing, Dr. Romero and pediatric provider were called to attend. 2. Dr. Romero offers to assist with vacuum and assumed care of patient with her consent. KH Objective Abnormal lab results 03/06/23 Range/Units 13:55 MPV 12.5 H (8.0-11.0) fL Temp Pulse Resp BP Pulse Ox 99.0 F 107 H 16 111/76 95 03/06/23 22:27 03/06/23 23:22 03/06/23 23:25 03/06/23 23:22 03/06/23 21:59 Laboratory Results WBC 10.40 10^3/uL (4.4-10.8) 03/06/23 13:55 RBC 4.09 10^6/uL (3.93-5.22) 03/06/23 13:55 Hgb 12.2 g/dL (11.2-15.7) 03/06/23 13:55 Hct 36.2 % (36.0-46.0) 03/06/23 13:55 MCV 89 fL (80-95) 03/06/23 13:55 MCH 29.8 pg (27.0-33.0) 03/06/23 13:55 MCHC 33.7 % (32.0-36.0) 03/06/23 13:55 RDW 14.1 % (11.7-14.6) 03/06/23 13:55 Plt Count 196 10^3/uL (130-400) 03/06/23 13:55 MPV 12.5 fL (8.0-11.0) H 03/06/23 13:55 Membranes Rupture Positive 03/06/23 13:30 COVID-19 Source Nasal/Nares 03/06/23 13:55 SARS-CoV-2 (PCR) Negative (Negative) 03/06/23 13:55 Patient ABO/Rh O Positive 03/06/23 13:55 Antibody Screen NEGATIVE 03/06/23 13:55 Subjective Interval history since last seen: Juanita is becoming fatigued and having a difficult time continuing to push effectively. Second stage huddle was held at 2348 and same at 0048 with some descent noted. Due to that and that FHR 160-[address] Romero who is in house and Pediatric provider be called for delivery. Dr. Romero assumes care as she offers vacuum assist to patient and Juanita agrees to attempt. KH Results Hemoglobin/Hematocrit: Hgb 12.2 g/dL (11.2-15.7) 03/06/23 13:55 Hct 36.2 % (36.0-46.0) 03/06/23 13:55 Abnormal Lab Findings: Abnormal Labs 03/06/23 13:55 MPV 12.5 H
--- NOTE | 2023-03-07 04:38 | W.PM.OBCSECT ---
Date of service: 03/07/23 Time of Service: 04:38 Operative Note Operative Note Delivery Method: Unscheduled STAT: No and Primary NTSV>37 Weeks: Yes DATE OF PROCEDURE: 03/07/23 PRE-OP DIAGNOSES: at 40 weeks and 3 days, arrest of descent, failed vacuum POST-OP DIAGNOSES: same PROCEDURE: Primary low transverse section SURGEON: Della Romero Insurance Verification Specialist: Cammy Altamirano Insurance Verification Specialist: Hector Booker Anesthesia: GETA, local and spinal Estimated blood loss (mL): 800 Pathology: none sent Complications: None Patient was transported to: PACU Patient's condition: stable Indications: Arrest of descent, failed vacuum extraction Findings: Delivery of a viable female Apgars 5, 8. Procedure Description: Is currently asked to consult with this patient regarding arrest of descent. Patient had reassuring status and due to maternal exhaustion attempt at vacuum extraction was made. Bladder was drained for approximately 200 cc of clear yellow urine and pelvis assessed and noted to be adequate. With Kiwi vacuum extractor and 2 discrete pushes with no pop offs vertex failed to descend into the introitus. In light of this fact, the decision was made that she should undergo primary low-transverse section. Risk benefits and alternatives were discussed in full informed consent was obtained. The patient was then taken the operating suite with an IV running. Her left antecubital IV did infiltrate and was replaced in the right antecubital space. She received clindamycin 900 mg and Zithromax 500 mg for surgical site infection prophylaxis. She was placed in the seated position and spinal anesthesia was administered. The test was not unsatisfactory and the patient had no pain control. In light of this fact, she was given general anesthesia. She had a vaginal preparation and a Felton catheter inserted prior to induction of analgesia. Her abdomen was prepped and draped in the usual fashion and after general anesthesia administered, surgery commenced. Pfannenstiel skin incision was made and carried down to the underlying fascia. The fascia was nicked in the midline and extended laterally. The rectus muscles were identified in the midline peritoneum identified and all entered bluntly. The incision was then extended superiorly and inferiorly and the bladder blade was inserted. Uterine incision was made well above the bladder with a scalpel and extended bluntly laterally. The vertex was noted to be wedged well deep within the pelvis with significant caput. The vertex was gently elevated and delivered through the lower uterine segment. There is no evidence of nuchal cord and the shoulders followed with ease. Three-vessel cord was noted clamped x2 and cut and the infant was handed off to the waiting file clerk. At this point a segment for cord blood gases were obtained and cord blood sample was obtained, however it had clotted and was not able to be sent to the laboratory. The placenta was then manually expressed from the uterus and the uterus exteriorized and cleared of all clot and debris. There is noted to be significant uterine atony for which she received oxytocin, 1 dose of Methergine, 1 dose of Hemabate, both IM and 1 dose of Tranxene Donna acid. Uterine tonicity improved and the uterine incision was closed using 0 Monocryl suture initially in a running locked fashion and a an imbricating stitch for a second layer. There was an area at the left apex of the uterine incision that was not hemostatic which was oversewn and noted to be hemostatic. The uterus was then returned to the abdomen and a second stitch at the right apex of the incision was also made to achieve adequate hemostasis. The abdomen was irrigated with copious amounts of normal saline and found to be free of trauma. Ovaries and uterus along with the fallopian tubes were noted to be normal with the uterine incision that was hemostatic. At this point the fascial incision was closed using 0 Vicryl suture in a running fashion. Subcutaneous tissue was irrigated with copious months of normal saline and reapproximated with 3-0 Vicryl in a simple interrupted fashion. The skin edge was then reapproximated with 4-0 undyed Monocryl suture and Steri-Strips and a Mepilex dressing were placed. Patient awoke from anesthesia without difficulty and was taken to the postanesthesia care unit in stable condition with a Felton catheter draining clear yellow urine. Findings: 1 delivery of viable female infant with Apgars 5, and 8. Normal-appearing tubes, ovaries, uterus Complications: None apparent Fluids: Crystalloid per anesthesia EBL: 800 mL Gestational Age in Weeks/Days: 40 Weeks and 3 Days
[2023-03-07] MEDS: HYDROmorphone 2 MG/ML SYR IVP ×2 (04:54→05:04)
[2023-03-07] MEDS: HYDROmorphone 2 MG/ML SYR 1 MG IVP (05:30)
[2023-03-07] MEDS: Ketorolac 30 MG/ML VIAL 15 MG IVP ×3 (11:05→22:21)
[2023-03-07] MEDS: Normal Saline Flush 10 ML SYR IVP ×2 (11:07→17:06)
[2023-03-07] MEDS: Docusate Sodium 100 MG CAP PO ×2 (11:07→22:30)
--- NOTE | 2023-03-07 15:17 | W.ANESPOSTOP ---
Postoperative Evaluation Date, Time and Location Date Performed: 03/07/23 Time Performed: 15:18 Patient Location: Obstetrics Vital Signs Most Recent Imported Vital Signs: Most Recent Vital Signs Temp Pulse Resp BP Pulse Ox 36.8 C 80 16 97/62 L 96 03/07/23 11:10 03/07/23 11:10 03/07/23 11:10 03/07/23 12:10 03/07/23 11:10 Pain Score Most Recent Pain Score: Most Recent Pain Score Pain Level [Abdomen] 3 03/07/23 11:10 Pain Level 3 03/07/23 11:05 Assessment Mental Status: Awake (Alert & Oriented to Patient Baseline) Airway and Respiratory Function: Patent airway with normal (patient baseline) respiratory exam Cardiovascular Function: Hemodynamically Stable Hydration Status: Adequately Hydrated Nausea & Vomiting: No Nausea or Vomiting Pain: Pain is tolerable per patient Peripheral Nerve Block: Patient did not receive a nerve block
[2023-03-07] MEDS: oxyCODONE 5 mg/Acetaminophen 325 mg TAB PO ×2 (15:35→19:46)
[2023-03-08] MEDS: oxyCODONE 5 mg/Acetaminophen 325 mg TAB PO (00:34)
[2023-03-08] MEDS: Ibuprofen 600 MG TAB PO ×3 (04:21→19:19)
[2023-03-08] MEDS: Acetaminophen 325 MG TAB 650 MG PO ×4 (04:21→19:19)
[2023-03-08 07:00] VITALS: BP 100/66; PULSE 103; RESP 18; TEMP 36.6; O2SAT 98
[2023-03-08 07:00] LABS: Abs Immature Grans 0.08 10^3/uL (0.0-0.06); Absolute Basophil Count 0.04 10^3/uL (0.0-0.2); Absolute Neutrophil Count 9.86 10^3/uL (1.2-6.7); Basophils % 0.3; Eosinophils % 0.6; HGB 9.1 g/dL (11.2-15.7); Immature Grans % 0.6; Lymphocytes % 14.9; MCH 30.3 pg (27.0-33.0); MCHC 33.7 % (32.0-36.0); MCV 90 fL (80-95); MPV 12.3 fL (8.0-11.0); Monocytes % 6.1; Neutrophils % 77.5; Platelet Count 169 10^3/uL (130-400); RDW 14.5 % (11.7-14.6); RDW-SD 47.8 fL; WBC 12.72 10^3/uL (4.4-10.8)
[2023-03-08 07:01] LABS: Absolute Eosinophil Count 0.08 10^3/uL (0.0-0.7); Absolute Monocyte Count 0.78 10^3/uL (0.1-0.8)
[2023-03-08 10:30] VITALS: BP 107/72; PULSE 99; RESP 18; TEMP 36.8; O2SAT 98
--- NOTE | 2023-03-08 10:34 | OBPPV_ITS ---
Date of service: 03/08/23 Time of Service: 10:34 Assessment and Plan Assessment and plan (1) Status post primary low transverse section: Status: Acute Assessment and plan: Postop day #1 status post primary low-transverse section for labor arrest. Patient did receive general anesthesia for spinal inadequacy. Doing well. Hemoglobin dropped to 9.1 though hemodynamically stable with appropriate vital signs. We will continue to monitor. Routine postoperative and care. Subjective Subjective Interval history: Patient seen and examined this morning. All events of her labor and delivery reviewed to the best of my ability. Overall she is doing well. Her pain is we ll controlled. She is happy with her progress as far as breast-feeding goes and she is bonding well with her . Patient's Mood: Good [place] baby status: Doing well, Nursing well, Rooming in and Strong Bonding Observed [place] feeding status: Exclusively breast feeding Exam Physical Exam Vital signs: Temp Pulse Resp BP Pulse Ox 97.9 F 103 H 18 100/66 98 03/08/23 07:00 03/08/23 07:00 03/08/23 07:00 03/08/23 07:00 03/08/23 07:00 Vital Signs Reviewed: Yes Notable Details: Mild tachycardia Narrative: Vital signs otherwise stable. Urine output appropriate. Hemoglobin this morning down to 9.1 though hemodynamically stable with no symptoms. Constitutional Constitutional: no acute distress and obese HEENT Exam HEENT Exam: Normal Neck Exam Neck Exam: Normal Respiratory Exam Respiratory Exam: Normal Cardiovascular Exam Cardiovascular Exam: Normal Abdominal Exam Abdomen: Tender Fundal Exam Fundus: Below Umbilicus and Firm Results Hemoglobin/Hematocrit: Hgb 9.1 g/dL (11.2-15.7) L D 03/08/23 06:40 Hct 27.0 % (36.0-46.0) L 03/08/23 06:40 Abnormal Lab Findings: Abnormal Labs 03/06/23 03/08/23 13:55 06:40 WBC 12.72 H RBC 3.00 L Hgb 9.1 L D Hct 27.0 L MPV 12.5 H 12.3 H Absolute Neutrophils 9.86 H
[2023-03-08] MEDS: Docusate Sodium 100 MG CAP PO (14:47)
[2023-03-08 15:29] VITALS: BP 104/70; PULSE 105; RESP 18; TEMP 37; O2SAT 100
[2023-03-08 19:48] VITALS: BP 135/77; PULSE 110; RESP 18; TEMP 36.8; O2SAT 100
[2023-03-08 20:57] VITALS: BP 103/76; PULSE 103
[2023-03-09] MEDS: Acetaminophen 325 MG TAB 650 MG PO ×3 (00:48→12:01)
[2023-03-09] MEDS: Ibuprofen 600 MG TAB PO ×2 (00:48→07:58)
[2023-03-09 00:55] VITALS: BP 111/74; PULSE 104; RESP 18; TEMP 36.6
[2023-03-09] MEDS: Docusate Sodium 100 MG CAP PO (07:58)
[2023-03-09 08:00] VITALS: BP 103/75; PULSE 95; RESP 18; TEMP 36.7; O2SAT 98
--- NOTE | 2023-03-09 08:02 | W.PM.OBPNV1 ---
Date of service: 03/09/23 Time of Service: 08:02 Assessment and Plan Assessment and plan (1) Status post primary low transverse section: Status: Acute Assessment and plan: Post op day # 2, doing well. Anticipate D/C today or tomorrow based on peds recommendations Subjective Subjective Interval history: Patient seen, doing well. No issues or concerns. Anticipate D/C when baby is D/C'd. Breast feeding without difficulty Patient's Mood: Appropriate [place] baby status: Doing well, Nursing well and Strong Bonding Observed Exam Physical Exam Vital signs: Temp Pulse Resp BP Pulse Ox 97.9 F 104 H 18 111/74 100 03/09/23 00:55 03/09/23 00:55 03/09/23 00:55 03/09/23 00:55 03/08/23 19:48 Vital Signs Reviewed: Yes Notable Details: mild tachycardia Constitutional Constitutional: no acute distress HEENT Exam HEENT Exam: Normal Neck Exam Neck Exam: Normal Respiratory Exam Respiratory Exam: Normal Cardiovascular Exam Cardiovascular Exam: Normal Abdominal Exam Abdomen: Tender Fundal Exam Fundus: Below Umbilicus and Firm Extremities Exam Extremity Exam: Normal; negative Calf Tenderness or Redness Neurological Exam Neurological Exam: Normal Psychiatric Exam Psychiatric Exam: Normal Results Hemoglobin/Hematocrit: Hgb 9.1 g/dL (11.2-15.7) L D 03/08/23 06:40 Hct 27.0 % (36.0-46.0) L 03/08/23 06:40 Abnormal Lab Findings: Abnormal Labs 03/06/23 03/08/23 13:55 06:40 WBC 12.72 H RBC 3.00 L Hgb 9.1 L D Hct 27.0 L MPV 12.5 H 12.3 H Absolute Neutrophils 9.86 H
--- NOTE | 2023-03-09 08:16 | DSE_ITS ---
Date of service: 03/09/23 Time of Service: 08:16 DS: Diagnosis Discharge Diagnosis (1) Status post primary low transverse section: Status: Acute Discharge Plan Disposition Patient Disposition: Home Condition: Improving Discharge Details Reason For Visit: ROM and Early Labor at 40w2d Gestation Admit Date/Time: 03/06/23 13:29 Admit Provider: Cammy Altamirano Attending Provider: Cammy Altamirano Primary Care Provider: Renee Navas Hospital Course Hospital Course: Patient was admitted in active labor. She progressed to the point that she was completely dilated and due to maternal exhaustion, vacuum extraction attempt was made. This was unsuccessful. She continued to push with no descent. At this point the decision was made for section. Risk benefits and alternatives were discussed and she was taken to the OR. She had a spinal anesthesia placed, however this was inadequate and she received general anesthesia. She delivered a viable female without difficulty. Her course was uncomplicated and she was transition from parenteral to oral pain medication. Her diet was advanced. She is breast-feeding without difficulty. Pain was well controlled on ibuprofen, Percocet, and Tylenol. She is discharged home at this point in stable condition. Her follow-up will be in the office in 1, 2, and 6 weeks. All questions were answered. Home Meds and New Rx's Prescriptions: New ibuprofen 800 mg tablet 800 mg PO Q8H Qty: 90 0RF oxycodone-acetaminophen [Percocet] 5-325 mg tablet 1 tab PO Q8H PRNQty: 10 0RF docusate sodium [Colace] 100 mg capsule 100 mg PO BID Qty: 30 0RF Continued ferrous sulfate 325 mg (65 mg iron) tablet 325 mg PO DAILY Qty: 90 0RF prenat.vits,dieter,api-eodo-ltlea Tablet 1 tab PO DAILY Discontinued aspirin [Amilcar Low Dose Aspirin] 81 mg tablet,delayed release (DR/EC) 81 mg PO DAILY Qty: 90 2RF Rx Instructions: alternate 1 tablet day 1 then 2 tablets day two and repeat. Discharge Instructions Stand Alone Forms: BC Instructions, BC Discharge Instruc Activity:: Pelvic rest, no heavy lif Equipment/Supplies:: No Equipment Needed Diet:: As Tolerated Discharge Orders Discharge Orders: Discharge Order (Routine); Ordered 03/09/23 Ordered By: Della Romero OB:DS Summary Summary Episiotomy Description: None Laceration Description: None Laceration Extension: N/A Contraception Discussed Contraception Discussed: Yes, [place] Gender-Baby A: Female weight: 7 lb 5.11 oz Status at Discharge Functional status at discharge: independent ambulation Overall status at discharge: patient is progressing back to baseline Mental Status: mental status grossly normal Speech and Movement: speech and movement normal Mood: congruent mood Affect: normal affect Exam Physical Exam Vital signs: Temp Pulse Resp BP Pulse Ox 97.9 F 104 H 18 111/74 100 03/09/23 00:55 03/09/23 00:55 03/09/23 00:55 03/09/23 00:55 03/08/23 19:48 Narrative: See physical exam from progress note dated 03/05/2023. PFSH All Active Problems (Updated 03/07/23 @ 02:17 by Della Romero DO) Status post primary low transverse section (Acute) 03/07/2023. Female infant.Tracie labor arrest. 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 LEEP Dec 2021: TAMARA 3 with clear margins Family History Mother Cancer cervical Depression Substance use disorder Alcohol use disorder Paternal Grandmother Cancer thyroid, lung, eye and intestinal cancer Colon cancer Social History Smoking/Tobacco Use Status: Former Tobacco Use Smoking risk assessment performed?: Yes Alcohol Intake: never Counseling given: No Drug use: Never Substance use type: does not use Adopted: No Caregiver/Support person: No Foster care: No Household members: spouse Housing: house Communication Needs: None Education Level: college Do you need help understanding health information?: Never Pets and animals: Yes Pets and animals: dog(s) Sexually active: Yes Do you think of yourself as: straight/heterosexual Current gender identity: male What is your relationship status?: How often do you talk on the phone with friends or family?: three or more times per week How often do you get together with friends or relatives?: three or more times per week How often do you attend zoroastrianism or nondenominational services?: 1-3 times per year Panel score (0-1 are the most socially isolated patients): 2 What type of physical activity do you participate in: walking Duration: < 15 minutes/day Special david needs: No Agree to transfusion: Yes Seatbelt use: always Helmet use: Yes Drive intox or ride w/intox otr van cdl truck driver: No Do you feel safe at home: Yes Do you feel safe in your relationship?: Yes Female Reproductive History Menstrual control method: pills History History 1 Para 0 Hx # Term Pregnancies 0 Multiple births 0 Hx # Pregnancies 0 Ectopic pregnancies 0 AB induced 0 Hx Number of Living Children 0 AB spontaneous 0 DS: Data Vitals/I&O Vitals and I&O: Vital Signs Temperature 97.9 F 03/09/23 00:55 Temperature 98.8 F 03/06/23 17:59 Temperature Source Oral 03/09/23 00:55 Pulse 104 H 03/09/23 00:55 Pulse 93 03/06/23 17:59 Pulse Rhythm Regular 03/08/23 19:48 Respiratory Rate 18 03/09/23 00:55 Respiratory Depth Normal 03/08/23 19:48 Blood Pressure 111/74 03/09/23 00:55 Blood Pressure 111/76 03/06/23 17:59 Blood Pressure Mean 86 03/09/23 00:55 Pulse Oximetry 100 03/08/23 19:48 Respiratory End-tidal CO2 31 03/07/23 04:57 Oxygen Delivery Method Room Air 03/07/23 05:07 Oxygen Flow Rate 2 03/07/23 04:47 Pain Level 5 03/09/23 07:58 Comment Pt has finally fallen asleep after only getting a few hours in the last 36 hours. RN will wait to do VS when she hears pt wake or when medication is due at 0100 03/08/23 23:10 Intake & Output 03/08/23 03/08/23 03/09/23 11:59 23:59 11:59 Output Total 1949 350 / 2300 Balance -1949 - / Output: Urine 1949 / 2300 Other: Urine Color Yellow Yellow Urine Appearance Clear Clear Urine Odor None None Comment Pt continues to request to wait to remove esparza Voiding Methods Toilet Toilet
[2023-03-09 11:30] VITALS: BP 116/80; PULSE 114; RESP 18; TEMP 36.4; O2SAT 98
== END 2023-03-09 12:15 | disposition home or self-care (01) | DRG 788 ==
LOC: BCD 15:04 → OBS 15:04
PROVIDERS: Obstetrics & Gynecology; Admitting Provider Advanced Practice Midwife; PCP Nurse Practitioner Family; Visit Provider Advanced Practice Midwife
PROC: 10D00Z1 Extraction of Products of Conception, Low, Open Approach (ICD-10-PCS; CPT 59514; principal; 2023-03-07 02:20)
DX: O75.89 Other specified complications of labor and delivery (principal); Z37.0 Single live birth; O62.1 Secondary uterine inertia; Z3A.40 40 weeks gestation of pregnancy; M54.30 Sciatica, unspecified side; O66.5 Attempted application of vacuum extractor and forceps
CPT/HCPCS: 59514; 36415; 82803; 84112; 85027; 86850; 86900; 86901; 87635; 85025; J0131; J0456; J1100; J1170; J1885; J2210; J2405; J3010